=== PATIENT | male | born 1945 | race Caucasian/White ===

== ENCOUNTER 2025-04-11 08:08 | Outpatient (CLI) | payer MEDICARE, SELFPAY ==
--- NOTE | ~2025-04-11 | MR_ITS ---
EXAM/PROCEDURE: MR brain/brain stem wo/w con HISTORY: Altered mental status COMPARISON: None available. TECHNIQUE: Pre and postcontrast enhanced brain MRI performed FINDINGS: No mass, mass effect or bleed. No restricted diffusion or acute ischemic event. Moderately severe diffuse chronic microvascular ischemic appearing white matter changes in both cerebral hemispheres. No abnormal enhancing lesions or foci on postcontrast series. Brainstem and cerebellum unremarkable. Paranasal periorbital and calvarial structures unremarkable. Vascular flow voids patent at skull base. IMPRESSION: No acute ischemic event, mass or hemorrhage. Moderately severe diffuse chronic microvascular ischemic appearing white matter changes. Reviewed, dictated and finalized at location A. IC CLERK
== END 2025-04-11 08:09 | disposition home or self-care (01) ==
PROVIDERS: PCP Student in an Organized Health Care Education/Training Program; Visit Provider Student in an Organized Health Care Education/Training Program
DX: R90.82 White matter disease, unspecified (principal); R41.82 Altered mental status, unspecified
CPT/HCPCS: 70553; A9577